=== PATIENT | female | born 2005 | race Caucasian/White ===

== ENCOUNTER 2025-03-29 11:12 | Emergency (ER) | payer OTHER, SELFPAY ==
--- OUTSIDE RECORDS SUMMARY | 2025-03-29 11:14 | XMS_ITS | Clinical Summary ---
Author Organization [facility] Address [address] [place] [address] Care Team Providers Care Dairy Equipment Specialist Name Role Phone Unavailable Primary Care Provider Unavailabl e Source Comments [facility],non-owned Affiliates and Associated Physician Practices is amultiple site organization consisting of ambulatory clinics and hospital sitesin [place], [place], [place] and [place]. This disclosure is being madepursuant to the Care Everywhere program and may not contain all information available regarding this patient. Last updated 18.[facility] Social History Tobacco Use Types Packs/Day Years Used Date Smoking Tobacco: Never Assessed Comments Unknown Sex and Gender Information Value Date Recorded Sex Assigned at Not on file Legal Sex Female 5:42 AM [employer] Gender Identity Not on file Sexual Orientation Not on file Plan of Treatment Health Maintenance Due Date Last Done Comments HIV SCREENING 2018 HPV VACCINE (1 - 3-dose series) 2018 CHLAMYDIA/GONORRHEA SCREENING 2019 MENINGOCOCCAL (Group B) VACC INE SHARED DECISION-MAKING (1 of 2 - Standard) 2019 HEPATITIS C SCREENING 02/01/2021 DTAP/TDAP/TD VACCINES (1 - Tdap) 2022 HEPATITIS B VACCINE (1 of 3 - 19+ 3-dose series) 2022 COVID-19 VACCINE (1 - 2023-2 5 season) 2024 DEPRESSION SCREENING 10/30/2024 INFLUENZA VACCINE (Season Ended) 2025 ZOSTER VACCINE (1 of 2) 2053 HIB VACCINE Aged Out No longer eligi ble based on patient's age to complete this topic MENINGOCOCCAL GROUPS A/C/Y/W VACCINE Aged Out No longer eligible b ased on patient's age to complete this topic PNEUMOCOCCAL VACCINE Aged Out No long er eligible based on patient's age to complete this topic
--- NOTE | 2025-03-29 11:17 | ED_ITS ---
HPI - Skin/Abscess/Foreign Bdy General Chief complaint: Skin/Abscess/Foreign Body Stated complaint: Rash Time Seen by Provider: 03/29/25 11:14 patient presents to the [facility] with multiple complaints. Noted about 1 week ago did have a take in the left side of abdomen that she did remove. Patient reports area with a little itchy for which she applied cortisone and now has no complaints but was nervous due to the tick being inside. patient also noted 2 days ago had a small bump to the inside of left elbow that showed up unsure if this is a pimple or something else. Denies any pain, itching, or drainage from the area. Patient does also note yesterday while laying in bed did have some numbness and odd feeling in the right forearm but this completely resolved when she changed positions. No other symptoms like this in the last week. Patient does also report yesterday noticed a rash to the left ankle noted today this is improved but unsure of the cause or what this is. No medication remedies attempted for symptoms. Denies calf pain, tenderness, itching, swelling, drainage, or crusting. Related Data Home Medications ?Medication ?Instructions ?Recorded ?Confirmed ?Last Taken ?Type cetirizine 10 mg tablet mg 03/29/25 Unknown History fluticasone propionate 50 intranasal 03/29/25 Unknown History mcg/actuation nasal spray,suspension Allergies Allergy/AdvReac Type Severity Reaction Status Date / Time No Known Allergies Allergy Verified 03/29/25 11:16 Review of Systems Constitutional: Constitutional: Reports as per HPI, Denies chills, Denies fatigue, Denies fever(s) and Denies weakness Eyes: Eyes: Reports no additional eye complaints ENT: Reports system reviewed and no additional complaints, except as documented Cardiovascular: Cardiovascular: Reports no additional cardiovascular complaints Respiratory: Respiratory: Reports no additional respiratory complaints Gastrointestinal: Gastrointestinal: Reports no additional gastrointestinal complaints Genitourinary: Genitourinary: Reports no additional female genitourinary complaints Musculoskeletal: Musculoskeletal: Reports as per HPI, Denies arthralgias and Denies joint swelling Comments: Numbness and odd feeling right forearm. Integumentary/Breasts: Skin/Breast: Reports as per HPI, Reports pruritus, Reports erythema and Reports rash ( left lower leg) Comments: tick bite to left side of abdomen small red bump to left lateral wall Neurologic: Reports as per HPI and Reports numbness ( right forearm very short time resolved with position change) Psychiatric: Psychiatric: Reports no additional psychiatric complaints Endocrine: Endocrine: Reports no additional endocrine complaints Hematologic/Lymphatic: Hematologic/Lymphatic: Reports no additional hematologic/lymphatic complaints Allergic/Immunologic: Allergic/Immunologic: Reports no additional allergic/immunologic complaints Exam Const: General: healthy appearing and no acute distress; No diaphoretic or ill appearing Nutritional Appearance: well nourished Orientation/cons ciousness: patient oriented x3 Limitations: no limitations Neck: Neck: normal visual inspection and no lymphadenopathy Chest: Chest palpation & inspection: normal inspection of the chest Resp: Effort & Inspection: normal respiratory effort Auscultation: clear to auscultation bilaterally Cardio: Rate: regular rate Rhythm: regular rhythm Heart sounds: no murmurs GI: GI Palp: Yes Soft to palpation and No Tenderness to palpation present (GI) Auscultation: normal bowel sounds Skin: General skin exam: normal color, no jaundice and no pallor Wounds: no wounds Other: very small erythematous circular area to left flank consistent with tick bite less than 1 cm in diameter. no active drainage, swelling, streaking, crusting, or rash near this area very small pustular lesion to left antecubital area. Nontender with palpation. No active drainage, crusting, streaking, or swelling. Vascular rash noted to posterior left lower leg. Blanches with palpation. No swelling diffuse erythema, streaking, drainage, or crusting. Neuro: General: patient oriented x3 Speech: normal speech Gait exam (Neuro): Normal gait present Extrem: General: no clubbing, cyanosis or edema and no pedal edema Left lower extremity: lower leg ( Rash noted to left posterior ankle. Homans sign negative,no calf swellin) Details: no tenderness, no pitting edema, no lacerations, no ecchymosis, no crepitus, no penetrating wound, no deformity and no unusual warmth Psych: Mental Status: mental status grossly normal Affect: normal affect Attitude: cooperative Course Course Level of Care: Express Care Visit Vital Signs Vital signs: Vital Signs Temperature 99.0 F 03/29/25 11:23 Pulse Rate 80 03/29/25 11:23 Respiratory Rate 17 03/29/25 11:23 Blood Pressure 135/85 03/29/25 11:23 Pulse Oximetry 100 03/29/25 11:23 Oxygen Delivery Room Air 03/29/25 11:23 Temperature 99.0 F 03/29/25 11:23 Pulse Rate 80 03/29/25 11:23 Respiratory Rate 17 03/29/25 11:23 Blood Pressure 135/85 03/29/25 11:23 Pulse Oximetry 100 03/29/25 11:23 Oxygen Delivery Room Air 03/29/25 11:23 MDM - Skin/Abscess/Foreign Bdy MDM Narrative Medical decision making narrative: 3 separate problems. No concern for tick-borne illness. Spoke with patient about tick-borne illness in 2 follow-up with emergency room for specific symptoms or follow-up with primary care physician for lab work. Discharge instructions reviewed with patient, as well as provided in writing per nursing staff. The instructions also include specific and strict return/GO TO THE ER as well as f/u information. All questions have been answered, and the patient deny any further questions with discharge and discharge plan. Differential Diagnosis Differential diagnosis: Likely abscess of skin or subcutaneous tissue, urticaria, allergic reaction to drug, cellulitis, insect bites, impetigo and contact dermatitis Medical Records Attestation: I reviewed the patient's medical records. Discharge Plan Discharge Clinical Impression: Insect bites, Tick bite, Vasculitis Patient Disposition: Home Condition: Stable Instructions: Antibiotic Form, Lyme Disease (ED), Tick Bite (ED) Additional Instructions: Apply warm compresses to the left inner elbow may use Q-tips to pop this area. Keep this area clean and dry may use topical patches if desired no concerns at this time with the tick bite. He may follow-up with primary care physician for lab work if he desires. As discussed you noted significant fatigue, headaches, numbness, tingling, or body aches go to the emergency room for further evaluation and lab work. The rash looks to be like a vascular rash using topical steroid cream or anti- inflammatory gel like diclofenac/Voltaren gel can help with this rest and elevate your leg as much as possible. Follow-up with primary care if symptoms not completely resolved in 1 week Patient Language: Azerbaijani Prescriptions: New triamcinolone acetonide 0.1 % cream 1 applic topical TID Qty: 80 0RF No Action cetirizine 10 mg tablet fluticasone propionate 50 mcg/actuation spray,suspension INTRANASAL Follow-up/Referrals: UNKNOWN,DOCTOR [Non-Staff] - Time of Disposition: 11:55
[2025-03-29 11:23] VITALS: BP 135/85; PULSE 80; RESP 17; TEMP 37.2; O2SAT 100
== END 2025-03-29 11:58 | disposition home or self-care (01) ==
PROVIDERS: Emergency Provider Nurse Practitioner Family; PCP Family Medicine
DX: S30.861A Insect bite (nonvenomous) of abdominal wall, initial encounter (principal); I77.6 Arteritis, unspecified; W57.XXXA Bitten or stung by nonvenomous insect and other nonvenomous arthropods, initial encounter
CPT/HCPCS: 99213; G0463